=== PATIENT | female | born 1985 | race Caucasian/White ===

== ENCOUNTER 2018-02-02 16:23 | Observation (INO) | payer MEDICAID, SELFPAY ==
[2018-02-02 16:39] VITALS: BMI 21.1
[2018-02-02 16:40] VITALS: BP 141/109; PULSE 95; RESP 18; TEMP 37.2; O2SAT 100
--- NOTE | 2018-02-02 16:43 | NURSING ---
PT TAKES NO HOME MEDS
[2018-02-02 16:49] VITALS: BMI 21.1
--- NOTE | 2018-02-02 17:14 | HP.PCM_ITS ---
History of Present Illness Date of Admission: 02/02/18 Chief Complaint: I am going through heroin withdrawal This is a 32-year-old male with history of drug use use disorder. She stated that she had used 'pills for many years and was able to started heroin from the stress. she uses about 1 g of heroin a day , she last used last night, she wants to quit, she sick of the street drugs. She now presents with symptom complex of heroin withdrawal, these includes; rhinorrhea, sneezing, anxiety, irritability, abdominal pain, back pain, restless legs, diaphoresis , nausea and insomnia. We are admitting her for medical stabilization of her withdrawal symptoms. Past Medical History Surgical History: no surgical history Smoking Status: Current every day smoker Tobacco Use: Cigarettes - *Family History Maternal History Items: No pertinent history Review of Systems Comment: All Systems were reviewed with pertinent positives mentioned in the HPI above. VTE Information - Inpt Only VTE Present on Admission: No VTE Pharm Prophylaxis ordered?: No - Physical Exam General: Alert, Oriented x3 HEENT: Atraumatic Oral: Moist Mucosa Neck: Supple, No JVD Lungs: Clear to auscultation Cardiovascular: Regular rate, Normal S1, Normal S2 Abdomen: Bowel Sounds Present Extremities: No clubbing, No cyanosis Vital Signs Temp Pulse Resp BP Pulse Ox 99.0 F 95 18 141/109 H 100 02/02/18 16:40 02/02/18 16:40 02/02/18 16:40 02/02/18 16:40 02/02/18 16:40 Oxygen Delivery Method Room Air Weight: 52.418 kg Body Mass Index (BMI) 21.1 Assessment/Plan 1. Acute opiate withdrawal;she will be placed on the medical stabilization for opiate withdrawal, we will continue to monitor her closely. 2. Substance use disorder; the patient is recommended to follow-up for outpatient drug rehabilitation program after her discharge. 3. Nicotine dependency; she is recommended to quit smoking, she is not pre- contemplative stage of change, we will place her on nicotine transdermal patch. 4. Early ambulation for DVT prophylaxis. Code Visit Inpatient E&M: 51897 In Hosp L3
[2018-02-02 18:04] LABS: Hemoglobin 13.9 g/dl (12.0-15.0); Mean Corp Hgb Conc 33.1 g/gl (32-36); Mean Corpuscular Hgb 29.5 pg (27.0-32.0); Mean Corpuscular Volume 89.2 fL (81-99); Mean Platelet Vol. 9.8 fl (6.2-12.0); Platelet Count 274 K/mm3 (150-450); RBC Distribution Width SD 42.1 fl (35.1-43.9); Red Blood Count 4.71 M/mm3 (4.2-5.4); Scan Indicated on CBC? Y/N NO; White Blood Count 6.9 K/mm3 (4.4-11.0)
[2018-02-02 18:11] LABS: International Normalized Ratio 1.1; Prothrombin Time (Protime)PT. 13.9 SECONDS (11.7-14.9)
[2018-02-02] MEDS: Buprenorphine HCl 2 MG TAB.SUBL SL (18:14)
[2018-02-02] MEDS: Dicyclomine 10 MG Capsule 20 MG PO (18:15)
[2018-02-02] MEDS: Methocarbamol 750 MG Tablet PO (18:15)
[2018-02-02] MEDS: QUEtiapine 25 MG Tablet PO (18:15)
[2018-02-02 18:24] LABS: Alcohol, Blood (Medical)-Serum < 3.0 mg/dL
[2018-02-02 18:27] LABS: ALB/GLOB Ratio 1.1 RATIO (0.9-2.4); AST(SGOT) 10 U/L (15-37); Alanine Aminotransfer ALT/SGPT 16 U/L (13-56); Alkaline Phosphatase 53 U/L (45-117); Anion Gap 8 (5-15); BUN 8 mg/dL (7-18); BUN/Creat Ratio 12.1 RATIO (10-20); Calcium,Total 8.9 mg/dL (8.5-10.1); Chloride 100 mmol/L (98-107); Creatinine, Serum 0.66 mg/dL (0.55-1.02); EST Glomerular Filtration Rate 110 mL/min (>60); Est Glom Filt Rate - Afr Amer 134 mL/min (>60); Estimated Creatinine Clearance 97.68 ml/min; Globulin 3.8 g/dL (2.2-4.2); Glucose 88 mg/dL (74-106); Lipase 112 U/L (73-393); Potassium 4.1 mmol/L (3.5-5.1); Protein, Total 7.8 g/dL (6.4-8.2); Sodium Level 138 mmol/L (136-145)
[2018-02-02 18:36] LABS: Pregnancy, Serum, hCG Quali. NEGATIVE Negative (0-9 Nonpreg)
[2018-02-02 20:42] VITALS: BP 122/82; PULSE 77; RESP 16; TEMP 37.2; O2SAT 98
[2018-02-02 22:00] VITALS: BP 126/70; PULSE 90; RESP 14; TEMP 37.2
[2018-02-02] MEDS: cloNIDine HCl 0.1 MG Tablet PO (22:28)
[2018-02-02] MEDS: Pramipexole Di-HCl 0.25 MG Tablet PO (22:28)
[2018-02-02] MEDS: hydrOXYzine PAM 25 MG Capsule 50 MG PO (22:28)
[2018-02-03] MEDS: Buprenorphine HCl 2 MG TAB.SUBL SL ×3 (01:51→18:20)
[2018-02-03] MEDS: Methocarbamol 750 MG Tablet PO ×4 (01:51→22:54)
[2018-02-03] MEDS: Dicyclomine 10 MG Capsule 20 MG PO ×4 (01:52→22:54)
[2018-02-03 03:44] VITALS: BP 96/55; PULSE 60; RESP 18; TEMP 36.6; O2SAT 95
[2018-02-03 09:35] VITALS: BP 114/78; PULSE 73; RESP 16; TEMP 36.9
[2018-02-03] MEDS: cloNIDine HCl 0.1 MG Tablet PO ×2 (09:45→16:34)
--- NOTE | 2018-02-03 10:35 | PCM.PN.HOSP ---
Patient Problems: Active and Suspected Problems Opiate withdrawal (Acute) Subjective: States that she is feeling worse. Does complain of chronic rhinitis because she started her heroin. Vitals/I&O's: Vital Signs Temp Pulse Resp BP Pulse Ox 36.9 C 73 16 114/78 95 02/03/18 09:35 02/03/18 09:35 02/03/18 09:35 02/03/18 09:35 02/03/18 03:44 Oxygen Delivery Method Room Air Weight: 52.418 kg Body Mass Index (BMI) 21.1 Intake and Output for Last 24 Hours 02/01/18 02/02/18 02/03/18 23:59 23:59 23:59 Intake Total 220 / 220 600 / 600 Balance 220 / 220 600 / 600 General: Alert, Cooperative, No apparent distress HEENT: Atraumatic, Normocephalic Neck: No Nodes, Thyroid Normal Size and Texture Lungs: Clear to auscultation, Normal air movement, No rhonchi, No wheeze Cardiovascular: Regular rate, Regular Rhythm, Normal S1, Normal S2 Abdomen: Bowel Sounds Present, Soft, Non Tender, Non-Distended, No Hepato-splenomegaly Extremities: No edema, No Calf Tenderness Psych/Mental Status: Normal Affect, Appropriate Laboratory Results 02/02/18 17:17: PT 13.9, INR 1.1 02/02/18 17:17: Sodium 138, Potassium 4.1, Chloride 100, Carbon Dioxide 30.0, Anion Gap 8, BUN 8, Creatinine 0.66, Estim Creat Clear Calc 97.68, Est GFR (MDRD) Af Amer 134, Est GFR (MDRD) Non-Af 110, BUN/Creatinine Ratio 12.1, Glucose 88, Calcium 8.9, Total Bilirubin 0.70, AST 10 L, ALT 16, Alkaline Phosphatase 53, Total Protein 7.8, Albumin 4.0, Globulin 3.8, Albumin/Globulin Ratio 1.1, Lipase 112 02/02/18 17:17: Ethyl Alcohol < 3.0 02/02/18 17:17: Serum , Qual NEGATIVE 02/02/18 17:17: WBC 6.9, RBC 4.71, Hgb 13.9, Hct 42.0, MCV 89.2, MCH 29.5, MCHC 33.1, RDW 13.0, RDW Differential 42.1, Plt Count 274, MPV 9.8 Current Medications Acetaminophen (Tylenol) 500 mg PO Q4H PRN PRN PRN Reason: Temp > 100.4 F Buprenorphine HCl (Buprenorphine Hcl) 4 mg SL Q8H BRET PRN Reason: Taper Stop: 02/05/18 21:59 Last Admin: 02/03/18 09:45 Dose: 4 mg Clonidine (Catapres) 0.1 mg PO Q2H PRN PRN PRN Reason: Hot/Cold Sweats or Anxiety Last Admin: 02/03/18 09:45 Dose: 0.1 mg Dicyclomine HCl (Bentyl) 20 mg PO Q6H PRN PRN PRN Reason: Abdomnial Discomfort Last Admin: 02/03/18 09:45 Dose: 20 mg Hydroxyzine Pamoate (Vistaril Pamoate Capsule) 50 mg PO Q6H PRN PRN PRN Reason: Mild Anxiety (score 1/3) Last Admin: 02/02/18 22:28 Dose: 50 mg Ibuprofen (Motrin) 600 mg PO Q8H PRN PRN PRN Reason: Mild-Moderate Pain (1-5/10) Loperamide HCl (Imodium) 2 - 4 mg PO UD PRN PRN Reason: LOOSE STOOLS Methocarbamol (Methocarbamol) 750 mg PO Q6H PRN PRN PRN Reason: Muscle Aches Last Admin: 02/03/18 09:45 Dose: 750 mg Nicotine (Nicoderm Cq (Pbkc)) 21 mg TRANSDERM. DAILY BRET Last Admin: 02/03/18 09:43 Dose: 21 mg Ondansetron HCl (Zofran Odt) 4 mg PO Q6H PRN PRN PRN Reason: NAUSEA Pramipexole Dihydrochloride (Mirapex) 0.25 mg PO Q12H PRN PRN PRN Reason: Restless Legs Last Admin: 02/02/18 22:28 Dose: 0.25 mg Quetiapine Fumarate (Seroquel) 25 mg PO Q6H PRN PRN PRN Reason: Moderate Anxiety (score 2/3) Last Admin: 02/02/18 18:15 Dose: 25 mg Medical Necessity - Tobacco Use Smoking Status: Current every day smoker Tobacco Use: Cigarettes Assessment/Plan Active and Suspected Problems Opiate withdrawal (Acute) Acute opiate withdrawal Continue with the medical stabilization protocol with Subutex. Patient also on other medications to help her with somatic symptoms. Patient has already set up a 60 day program in [place] for opiate withdrawal. Patient previously had been sober for 6 months before relapsing. Code Visit Inpatient E&M: 26420 Subs Hosp L2
--- NOTE | 2018-02-03 13:37 | CHAPLAIN ---
Type of Pastoral Visit _x__ Initial Visit ___ Follow-up Visit ___ On-call Visit ___ General Patient Visit ___ Spiritual Assessment ___ Family Conference ___ Bereavement ___ Rapid Response ___ Code Blue ___ Other (describe below) Pastoral Care Referral From ___ Patient ___ Family ___ Nurse ___ Physician ___ Urology Physician Assistant ___ Store Operations Specialist _x - [facility] staff - Other (describe below) Sacrament/Intervention ___ Active listening ___ Anointing ___ Restoration ___ Bereavement ___ Communion ___ Joyce exploration ___ ___ Life review ___ Prayer ___ Reconciliation ___ Sacrament of Sick _x__ Supportive presence ___ Wedding ___ Other (describe below) Pastoral Comments introduction made to patient with offer of support; patient said that this 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
[2018-02-03 13:53] VITALS: BP 106/56; PULSE 82; RESP 14; TEMP 36.9
[2018-02-03] MEDS: hydrOXYzine PAM 25 MG Capsule 50 MG PO ×2 (16:32→22:54)
--- NOTE | 2018-02-03 16:57 | CHAPLAIN ---
Type of Pastoral Visit ___ Initial Visit _x__ Follow-up Visit ___ On-call Visit ___ General Patient Visit ___ Spiritual Assessment ___ Family Conference ___ Bereavement ___ Rapid Response ___ Code Blue ___ Other (describe below) Pastoral Care Referral From _x__ Patient ___ Family ___ Nurse ___ Physician ___ Respite Provider ___ Acting Teacher ___ Other (describe below) Sacrament/Intervention _x__ Active listening ___ Anointing ___ Quaker ___ Bereavement ___ Communion _x__ Joyce exploration ___ _x__ Life review _x__ Prayer ___ Reconciliation ___ Sacrament of Sick _x__ Supportive presence ___ Wedding ___ Other (describe below) Pastoral Comments patient said she had high anxiety; she talked about her regrets and failures, disappointing family; however we also looked at her strengths, being her family is still supportive and she had 6 years of being clean; pt was receptive to rehab placement by [facility] and to prayer support; talked about hope and looking for a new future
[2018-02-03 18:00] VITALS: BP 107/65; PULSE 78; RESP 16; TEMP 36.8
[2018-02-03] MEDS: Ibuprofen 600 MG Tablet PO (18:20)
[2018-02-03 21:35] VITALS: BP 102/61; PULSE 65; RESP 14; TEMP 36.3
[2018-02-03] MEDS: QUEtiapine 25 MG Tablet PO (21:38)
[2018-02-03] MEDS: Pramipexole Di-HCl 0.25 MG Tablet PO (21:38)
[2018-02-04 01:55] VITALS: BP 104/68; PULSE 60; RESP 14; TEMP 36.5
[2018-02-04] MEDS: Buprenorphine HCl 2 MG TAB.SUBL SL ×3 (01:56→21:59)
[2018-02-04 08:48] VITALS: BP 113/73; PULSE 63; RESP 16; TEMP 36.4
[2018-02-04] MEDS: cloNIDine HCl 0.1 MG Tablet PO ×2 (08:57→17:26)
[2018-02-04] MEDS: Methocarbamol 750 MG Tablet PO ×3 (08:57→23:11)
[2018-02-04] MEDS: Dicyclomine 10 MG Capsule 20 MG PO ×2 (08:58→17:26)
[2018-02-04] MEDS: hydrOXYzine PAM 25 MG Capsule 50 MG PO ×2 (08:58→17:26)
[2018-02-04 09:09] VITALS: BP 113/73; PULSE 63; RESP 16; TEMP 36.4; O2SAT 97
--- NOTE | 2018-02-04 10:04 | PN_ITS ---
Patient Problems: Active and Suspected Problems Opiate withdrawal (Acute) Subjective: Abdominal cramps and tremulousness. Patient has tolerated some diet. Patient is feeling slightly better than she was on this . Vitals/I&O's: Vital Signs Temp Pulse Resp BP Pulse Ox 36.4 C L 63 16 113/73 97 02/04/18 09:09 02/04/18 09:09 02/04/18 09:09 02/04/18 09:09 02/04/18 09:09 Oxygen Delivery Method Room Air Weight: 52.418 kg Body Mass Index (BMI) 21.1 Intake and Output for Last 24 Hours 02/02/18 02/03/18 02/04/18 23:59 23:59 23:59 Intake Total 220 / 220 1460 / 1460 300 / 300 Balance 220 / 220 1460 / 1460 300 / 300 General: Alert, Cooperative, No apparent distress, - - In bed. Afebrile. Nontoxic. No diaphoresis. HEENT: Atraumatic, Normocephalic Current Medications Acetaminophen (Tylenol) 500 mg PO Q4H PRN PRN PRN Reason: Temp > 100.4 F Buprenorphine HCl (Buprenorphine Hcl) 2 mg SL Q12H BRET PRN Reason: Taper Stop: 02/05/18 21:59 Last Admin: 02/04/18 01:56 Dose: 2 mg Clonidine (Catapres) 0.1 mg PO Q2H PRN PRN PRN Reason: Hot/Cold Sweats or Anxiety Last Admin: 02/04/18 08:57 Dose: 0.1 mg Dicyclomine HCl (Bentyl) 20 mg PO Q6H PRN PRN PRN Reason: Abdomnial Discomfort Last Admin: 02/04/18 08:58 Dose: 20 mg Hydroxyzine Pamoate (Vistaril Pamoate Capsule) 50 mg PO Q6H PRN PRN PRN Reason: Mild Anxiety (score 1/3) Last Admin: 02/04/18 08:58 Dose: 50 mg Ibuprofen (Motrin) 600 mg PO Q8H PRN PRN PRN Reason: Mild-Moderate Pain (1-5/10) Last Admin: 02/03/18 18:20 Dose: 600 mg Loperamide HCl (Imodium) 2 - 4 mg PO UD PRN PRN Reason: LOOSE STOOLS Methocarbamol (Methocarbamol) 750 mg PO Q6H PRN PRN PRN Reason: Muscle Aches Last Admin: 02/04/18 08:57 Dose: 750 mg Nicotine (Nicoderm Cq (Pbkc)) 21 mg TRANSDERM. DAILY BRET Last Admin: 02/03/18 09:43 Dose: 21 mg Ondansetron HCl (Zofran Odt) 4 mg PO Q6H PRN PRN PRN Reason: NAUSEA Pramipexole Dihydrochloride (Mirapex) 0.25 mg PO Q12H PRN PRN PRN Reason: Restless Legs Last Admin: 02/03/18 21:38 Dose: 0.25 mg Quetiapine Fumarate (Seroquel) 25 mg PO Q6H PRN PRN PRN Reason: Moderate Anxiety (score 2/3) Last Admin: 02/03/18 21:38 Dose: 25 mg Medical Necessity - Tobacco Use Smoking Status: Current every day smoker Tobacco Use: Cigarettes Assessment/Plan Active and Suspected Problems Opiate withdrawal (Acute) 1. Acute opiate withdrawal * Continue with the medical stabilization protocol with Subutex. Patient also on other medications to help her with somatic symptoms. Patient has already set up a 60 day program in [place] for opiate withdrawal. Patient previously had been sober for 6 months before relapsing. * Into inquired about if she will be getting Subutex at her outpatient facility. I deferred the question to [facility] to further address. Plan is for the patient to go directly to the facility after discharge on the . Code Visit Inpatient E&M: 34242 Subs Hosp L2
[2018-02-04 13:57] VITALS: BP 102/61; PULSE 70; RESP 14; TEMP 36.8
--- NOTE | 2018-02-04 14:44 | CHAPLAIN ---
Type of Pastoral Visit ___ Initial Visit _x__ Follow-up Visit ___ On-call Visit ___ General Patient Visit ___ Spiritual Assessment ___ Family Conference ___ Bereavement ___ Rapid Response ___ Code Blue ___ Other (describe below) Pastoral Care Referral From _x__ Patient ___ Family ___ Nurse ___ Physician ___ Group Contract Analyst ___ Gas Well Pumper ___ Other (describe below) Sacrament/Intervention ___ Active listening ___ Anointing ___ Religious ___ Bereavement ___ Communion ___ Joyce exploration ___ ___ Life review ___ Prayer ___ Reconciliation ___ Sacrament of Sick _x__ Supportive presence ___ Wedding ___ Other (describe below) Pastoral Comments patient has same plan in place for treatment as she agreed to yesterday; pt says that sleeping has been so difficult for her
[2018-02-04 17:22] VITALS: BP 120/79; PULSE 74; RESP 16; TEMP 36.8
[2018-02-04] MEDS: QUEtiapine 25 MG Tablet PO (21:59)
[2018-02-04 22:00] VITALS: BP 99/66; PULSE 67; RESP 16; TEMP 36.8
[2018-02-05 08:20] VITALS: BP 121/79; PULSE 63; RESP 16; TEMP 36.6; O2SAT 100
[2018-02-05 08:24] VITALS: BP 121/79; PULSE 63; RESP 16; TEMP 36.6
--- NOTE | 2018-02-05 09:27 | PN_ITS ---
Patient Problems: Active and Suspected Problems Opiate withdrawal (Acute) Subjective: Slightly better but still not symptom free. Patient is feeling ready for discharge today. Vitals/I&O's: Vital Signs Temp Pulse Resp BP Pulse Ox 36.6 C 63 16 121/79 H 100 02/05/18 08:24 02/05/18 08:24 02/05/18 08:24 02/05/18 08:24 02/05/18 08:20 Oxygen Delivery Method Room Air Weight: 52.418 kg Body Mass Index (BMI) 21.1 Intake and Output for Last 24 Hours 02/03/18 02/04/18 02/05/18 23:59 23:59 23:59 Intake Total 1460 / 1460 1260 / 1260 Balance 1460 / 1460 1260 / 1260 General: Alert, No apparent distress, Well developed, Well nourished, - - At the side of the bed. HEENT: Atraumatic, Normocephalic Current Medications Acetaminophen (Tylenol) 500 mg PO Q4H PRN PRN PRN Reason: Temp > 100.4 F Buprenorphine HCl (Buprenorphine Hcl) 2 mg SL Q12H BRET PRN Reason: Taper Stop: 02/05/18 21:59 Last Admin: 02/04/18 21:59 Dose: 2 mg Clonidine (Catapres) 0.1 mg PO Q2H PRN PRN PRN Reason: Hot/Cold Sweats or Anxiety Last Admin: 02/04/18 17:26 Dose: 0.1 mg Dicyclomine HCl (Bentyl) 20 mg PO Q6H PRN PRN PRN Reason: Abdomnial Discomfort Last Admin: 02/04/18 17:26 Dose: 20 mg Hydroxyzine Pamoate (Vistaril Pamoate Capsule) 50 mg PO Q6H PRN PRN PRN Reason: Mild Anxiety (score 1/3) Last Admin: 02/04/18 17:26 Dose: 50 mg Ibuprofen (Motrin) 600 mg PO Q8H PRN PRN PRN Reason: Mild-Moderate Pain (1-5/10) Last Admin: 02/03/18 18:20 Dose: 600 mg Loperamide HCl (Imodium) 2 - 4 mg PO UD PRN PRN Reason: LOOSE STOOLS Methocarbamol (Methocarbamol) 750 mg PO Q6H PRN PRN PRN Reason: Muscle Aches Last Admin: 02/04/18 23:11 Dose: 750 mg Nicotine (Nicoderm Cq (Pbkc)) 21 mg TRANSDERM. DAILY BRET Last Admin: 02/04/18 10:09 Dose: 21 mg Ondansetron HCl (Zofran Odt) 4 mg PO Q6H PRN PRN PRN Reason: NAUSEA Pramipexole Dihydrochloride (Mirapex) 0.25 mg PO Q12H PRN PRN PRN Reason: Restless Legs Last Admin: 02/03/18 21:38 Dose: 0.25 mg Quetiapine Fumarate (Seroquel) 25 mg PO Q6H PRN PRN PRN Reason: Moderate Anxiety (score 2/3) Last Admin: 02/04/18 21:59 Dose: 25 mg Medical Necessity - Tobacco Use Smoking Status: Current every day smoker Tobacco Use: Cigarettes Assessment/Plan Active and Suspected Problems Opiate withdrawal (Acute) 1. Acute opiate withdrawal * Continue with the medical stabilization protocol with Subutex. Patient also on other medications to help her with somatic symptoms. Patient has already set up a 60 day program in [place] for opiate withdrawal. Patient previously had been sober for 6 months before relapsing. * Into inquired about if she will be getting Subutex at her outpatient facility. I deferred the question to [facility] to further address. Plan is for the patient to go directly to the facility after discharge on the . * Discharge today
--- NOTE | 2018-02-05 09:28 | PCM.DC ---
- Discharge Diagnoses Current Active Problems: Current Active and Chronic Problems Opiate withdrawal (Acute) You will use the following diet at home:: No restrictions Your food should be the consistency of: Regular Your liquids should be the consistency of: Regular/Thin Discharge Activity: Return to Normal Activity Allergies/Adverse Reactions: Allergies No Known Allergies Allergy (Verified 02/02/18 17:28) Primary Care Physician: Care Physician,No Primary [Primary Care Provider] - Proposed Discharge Date: 02/05/18
--- NOTE | 2018-02-05 09:28 | PCM.DC.SUM ---
Discharge Date and Diagnosis - Problem List Patient Problems: Active and Suspected Problems Opiate withdrawal (Acute) Date of Admission: 02/02/18 Date of Discharge: 02/05/18 - Primary Discharge Diagnosis Active and Suspected Problems Opiate withdrawal (Acute) Hospital Course and Treatment Operations: None Procedures: None Summary of Care Provided: The patient is a 32 year old F for acute withdrawal treatment for heroin. Patient normally snorts heroin. Patient was having multitude somatic complaints. Patient was started on the medical stabilization protocol with Subutex but also other medications to help her with her other somatic complaints. Patient's course was uncomplicated though she was not symptom-free during this hospitalization. Patient continues to have some mild symptoms at this time. Plan is for her to patient to go to an outpatient withdrawal addiction treatment in [facility]. Patient states that it is a 60 day program. [] Discharge Diet: No Restrictions Discharge Activity: Return to Normal Activity Primary Care Physician: Care Physician,No Primary [Primary Care Provider] - Disposition: Home Minutes spent on discharge:: 25 Patient Condition:: Good Medical Necessity - Tobacco Use Smoking Status: Current every day smoker Tobacco Use: Cigarettes Meaningful Use Info Meaningful Use Diagnoses (Choose all that apply): None applicable Code Visit Inpatient E&M: 13287 Disch Hosp
[2018-02-05] MEDS: hydrOXYzine PAM 25 MG Capsule 50 MG PO (10:40)
[2018-02-05] MEDS: Buprenorphine HCl 2 MG TAB.SUBL SL (10:40)
== END 2018-02-05 11:28 | disposition home or self-care (01) | DRG 435 ==
PROVIDERS: Admitting Provider Internal Medicine; Referring Provider Internal Medicine
DX: F11.23 Opioid dependence with withdrawal (principal); F17.210 Nicotine dependence, cigarettes, uncomplicated
CPT/HCPCS: 36415; 80053; 80320; 83690; 84703; 85027; 85610; 99218; 99406; G0378; G0379; G0480